=== PATIENT | male | born 1985 | race Two or more races ===

== ENCOUNTER 2022-04-29 09:12 | Emergency (ER) | payer MEDICAID, OTHER ==
[~2022-04-29] VITALS: Ht 188 cm; Wt 122.5 kg
[2022-04-29 09:33] VITALS: BP 137/87
[2022-04-29] MEDS ORDERED: AMOX-277 PO (10:34)
[2022-04-29] MEDS ORDERED: IBUP800T27 PO (10:34)
[2022-04-29] MEDS ORDERED: PRED20TA2 PO (10:34)
== END 2022-04-29 10:40 | disposition home or self-care (01) ==
LOC: ER 09:12
DX: J01.90 Acute sinusitis, unspecified (principal); G43.909 Migraine, unspecified, not intractable, without status migrainosus
CPT/HCPCS: 70450

== ENCOUNTER 2022-05-23 09:06 | Emergency (ER) | payer MEDICAID ==
[~2022-05-23] VITALS: Ht 188 cm; Wt 125.0 kg
[~2022-05-23 09:06] MED LIST: AMOX-277 PO; IBUP800T27 PO; PRED20TA2 PO
[2022-05-23] MEDS ORDERED: IBUP800T27 PO (10:48)
[2022-05-23 11:06] VITALS: BP 137/84
== END 2022-05-23 11:10 | disposition home or self-care (01) ==
LOC: ER 09:06
DX: G44.209 Tension-type headache, unspecified, not intractable (principal)